=== PATIENT | female | born 1980 | race Caucasian/White ===

== ENCOUNTER 2018-08-05 20:46 | Inpatient (IN) ==
[2018-08-05 22:45] LABS: Basophils # 0.1 10*3/uL (0.0-0.2); Basophils % 0.4 % (0.0-0.8); Eosinophils # 0.3 10*3/uL (0.0-0.87); Eosinophils % 1.9 % (0.00-10.9); Hematocrit 28.4 VOL% (35.7-47.0); Immature Granulocytes % 0.7 %; Lymphocytes # 2.2 10*3/uL (1.4-4.0); Lymphocytes % 15.9 % (21.3-54.2); Mean Corpuscular HGB Conc 31.7 GM/DL (32-36); Mean Corpuscular Hemoglobin 26 PG (27-34); Mean Corpuscular Volume 82.1 FL (87-102); Mean Platelet Volume 11.9 FL (9.6-12.0); Monocytes # 1.4 10*3/uL (0.11-0.8); NRBC # 0.02 10*3/uL; Neutrophils % 71.1 % (38.7-73.9); Platelet Count 270 T/CUMM (130-400); Red Blood Count 3.46 MC/CUMM (3.8-5.5); Red Cell Distribution Width 15.2 % (9.3-17.3); White Blood Count 14.1 T/CUMM (4-12)
[2018-08-05 23:05] LABS: Alanine Aminotransferase 14 U/L (13-56); Albumin 2.4 G/DL (3.4-5.0); Alkaline Phosphatase 139 U/L (45-117); Aspartate Amino Transferase 15 U/L (0-37); Bilirubin,Total < 0.39 MG/DL (0.2-1.0); Blood Urea Nitrogen 9 MG/DL (7-18); Calcium 8.4 MG/DL (8.5-10.1); Glucose 98 MG/DL (74-106); Osmolality,Calculated 271.8 MOS/KG (273-304); Potassium 3.8 MMOL/L (3.5-5.1); Sodium 137 MMOL/L (136-145); Total Protein 6.4 G/DL (6.4-8.3)
[2018-08-06] MEDS ORDERED: OXYTOCIN/LR 20 UNIT/1,000 ML BAG IV SCH (08:00)
[2018-08-06] MEDS: BUTORPHANOL 2 MG/ML VIAL IV PRN ×3 (09:08→16:30)
[2018-08-06] MEDS ORDERED: CITRIC ACID/SODIUM CITRATE 30 ML UDCUP PO ONE (18:25)
[2018-08-06] MEDS ORDERED: FAMOTIDINE 20 MG/2 ML VIAL IV ONE (18:25)
[2018-08-06] MEDS ORDERED: NALOXONE 0.4 MG/ML VIAL IV PRN (18:25)
[2018-08-06] MEDS ORDERED: diphenhydrAMINE 50 MG/1 ML VIAL IV PRN (18:25)
[2018-08-06] MEDS ORDERED: hydrOXYzine HCL 25 MG/1 ML VIAL IM PRN (18:25)
[2018-08-06] MEDS ORDERED: PROMETHAZINE 25 MG/1 ML VIAL IM PRN (18:25)
[2018-08-06] MEDS ORDERED: ePHEDrine 50 MG/ML AMP IV PRN (18:25)
[2018-08-06] MEDS ORDERED: LACTATED RINGERS 1,000 ML IV SCH (18:30)
[2018-08-06] MEDS ORDERED: BUTORPHANOL 2 MG/ML VIAL IV PRN (18:30)
[2018-08-06] MEDS: ONDANSETRON 4 MG/2 ML VIAL IV PRN (18:33)
[2018-08-06] MEDS: LACTATED RINGERS 1,000 ML IV SCH ×2 (19:25→22:50)
[2018-08-06] MEDS: fentaNYL 2 MCG/ROPIV 0.2% EPID 100 ML EPIDURAL SCH (20:45)
[2018-08-06 20:58] LABS: Apearance,Urine CLEAR (Clear); Bacteria,Urine Occasional /HPF (Few); Bilirubin,Urine Negative (Negative); Blood, Urine Small mg/dL (Negative); Glucose,Urine (UA) Negative (Negative); Hyaline Casts,Urine 1 /LPF (0-3); Ketones,Urine 5 mg/dL (Negative); Nitrite,Urine Negative (Negative); Protein,Urine Negative; RBC,Urine 1 /HPF (0-4); Urine Color Yellow (Yellow); Urine Specific Gravity 1.006 (1.001-1.035); Urine Urobilinogen < 2.0 EU/DL (0.2-1.0); WBC,Urine 1 /HPF (0-6)
[2018-08-07] MEDS: fentaNYL 2 MCG/ROPIV 0.2% EPID 100 ML EPIDURAL SCH (04:48)
[2018-08-07] MEDS: LACTATED RINGERS 1,000 ML IV SCH (04:49)
[2018-08-07] MEDS: ONDANSETRON 4 MG/2 ML VIAL IV PRN (06:09)
[2018-08-07] MEDS ORDERED: OXYTOCIN/LR 20 UNIT/1,000 ML BAG IV SCH (07:30)
[2018-08-07] MEDS ORDERED: miSOPROStol 200 MCG TABLET ONE (09:08)
[2018-08-07] MEDS ORDERED: LIDOCAINE 1% 50 ML VIAL ONE (09:08)
[2018-08-07] MEDS ORDERED: METHYLERGONOVINE 0.2 MG/1 ML AMP ONE (09:09)
[2018-08-07] MEDS ORDERED: MEASLES/MUMPS/RUBELLA VACCINE 0.5 ML VIAL SUBCUT ONE (10:17)
[2018-08-07] MEDS ORDERED: BENZOCAINE 20%/MENTHOL 0.5% SPRAY 56 GM CAN TOP PRN (10:17)
[2018-08-07] MEDS ORDERED: WITCH HAZEL PADS 100/JAR TOP PRN (10:17)
[2018-08-07] MEDS ORDERED: LANOLIN 50% CREAM 0.3 OZ TUBE TOP PRN (10:17)
[2018-08-07] MEDS ORDERED: OXYTOCIN/LR 20 UNIT/1,000 ML BAG IV ONE (10:17)
[2018-08-07] MEDS ORDERED: ONDANSETRON 4 MG/2 ML VIAL IV PRN (10:17)
[2018-08-07] MEDS ORDERED: oxyCODONE/ACETAMINOPHEN 5-325 MG TABLET PO PRN ×2 (10:17)
[2018-08-07] MEDS ORDERED: BISACODYL 10 MG SUPP RECTAL PRN (10:17)
[2018-08-07] MEDS ORDERED: RHO(D) IMMUNE GLOBULIN 300 MCG SYRINGE IM ONE (10:17)
[2018-08-07] MEDS ORDERED: DIPH/TET/ACEL PERT BOOSTER VACCINE 0.5 ML VIAL IM ONE (10:17)
[2018-08-07] MEDS ORDERED: HYDROCORTISONE 2.5% RECTAL CREAM 30 GM TUBE TOP PRN (10:17)
[2018-08-07] MEDS ORDERED: ACETAMINOPHEN 325 MG TABLET PO PRN (10:17)
[2018-08-07] MEDS: IBUPROFEN 800 MG TABLET PO PRN ×2 (11:41→19:50)
[2018-08-07] MEDS ORDERED: FUROSEMIDE 40 MG/4 ML VIAL IV ONE (14:34)
[2018-08-07] MEDS: DOCUSATE SODIUM 100 MG CAPSULE PO SCH (20:46)
[2018-08-08] MEDS: IBUPROFEN 800 MG TABLET PO PRN ×4 (02:10→21:20)
[2018-08-08 06:25] LABS: Basophils # 0.1 10*3/uL (0.0-0.2); Basophils % 0.5 % (0.0-0.8); Eosinophils # 0.4 10*3/uL (0.0-0.87); Eosinophils % 2.2 % (0.00-10.9); Hematocrit 25.7 VOL% (35.7-47.0); Hemoglobin 8.1 GM/DL (12.0-16.0); Immature Granulocytes % 0.8 %; Immature Granulocytes Absolute 0.12 #; Lymphocytes # 2.5 10*3/uL (1.4-4.0); Lymphocytes % 15.5 % (21.3-54.2); Mean Corpuscular HGB Conc 31.5 GM/DL (32-36); Mean Corpuscular Hemoglobin 26 PG (27-34); Mean Corpuscular Volume 82.4 FL (87-102); Mean Platelet Volume 12.5 FL (9.6-12.0); Monocytes % 12.9 % (1.7-12.7); Neutrophils # 10.7 10*3/uL (1.4-7.4); Neutrophils % 68.1 % (38.7-73.9); Platelet Count 229 T/CUMM (130-400); Red Blood Count 3.12 MC/CUMM (3.8-5.5); Red Cell Distribution Width 15.5 % (9.3-17.3); White Blood Count 15.8 T/CUMM (4-12)
[2018-08-08] MEDS: DOCUSATE SODIUM 100 MG CAPSULE PO SCH ×2 (08:49→21:41)
[2018-08-09] MEDS: IBUPROFEN 800 MG TABLET PO PRN ×2 (04:23→11:08)
[2018-08-09 07:31] VITALS: BP 121/67
[2018-08-09] MEDS: DOCUSATE SODIUM 100 MG CAPSULE PO SCH (08:17)
[2018-08-09] MEDS ORDERED: FERROUS SULFATE 325 MG TABLET PO SCH (09:00)
== END 2018-08-09 14:50 | disposition home or self-care (01) | DRG 807 ==
LOC: N.LDOUT 20:46 → N.LD 20:52 → N.OB 08-07 14:21
PROVIDERS: ADMIT Specialist; ATTEND Specialist